=== PATIENT | female | born 1975 | race African-American/Black ===

== ENCOUNTER 2018-09-16 09:43 | Inpatient (IN) | payer MEDICAID ==
[~2018-09-16] VITALS: Ht 162.6 cm; Wt 144.7 kg
[2018-09-16 11:18] LABS: BASOPHILS % 0.6 % (0.0-2.0); EOSINOPHILS % 0.2 % (0.0-5.0); HEMATOCRIT. 37.8 % (36.0-48.0); LYMPHOCYTES % 14.7 % (20.0-50.0); MEAN CORPUSCULAR HEMOGLOBIN 24.4 pg (28.0-32.0); MEAN CORPUSCULAR VOLUME 76.7 fL (81.0-99.0); MEAN PLATELET VOLUME 8.4 fl (7.4-10.4); MONOCYTES % 4.1 % (2.0-8.0); NEUTROPHILS % 80.4 % (40.0-76.0); PLATELET 505 x1000/uL (130-400); RED BLOOD CELL COUNT 4.93 mill/uL (4.2-5.4); RED CELL DISTRIBUTION WIDTH 15.7 % (11.6-14.6)
[2018-09-16 11:22] LABS: CHLORIDE 99 mEq/L (98-107)
[2018-09-16] MEDS ORDERED: SODIUM CHLORIDE 0.9% 1,000 ML IV ONE (12:45)
[2018-09-16] MEDS: LOSARTAN POTASSIUM 100 MG TABLET PO SCH (13:00)
[2018-09-16] MEDS ORDERED: HYDR25TA PO (13:17)
[2018-09-16] MEDS ORDERED: GLIP10TA10 MT (13:17)
[2018-09-16] MEDS ORDERED: ASPI-1158 MT (13:17)
[2018-09-16] MEDS ORDERED: METF-415 PO (13:17)
[2018-09-16] MEDS ORDERED: LOSA100T14 MT (13:17)
[2018-09-16 16:30] VITALS: BP 166/98
[2018-09-16 16:45] VITALS: BP 166/98
[2018-09-16] MEDS ORDERED: HYDROCODONE/ACETAMINOPHEN 5/325MG TABLET PO PRN (18:00)
[2018-09-16] MEDS ORDERED: ACETAMINOPHEN 325MG TABLET PO PRN (18:00)
[2018-09-16] MEDS ORDERED: MORPHINE SULFATE 4 MG/ML CPJ (NOT FOR IM USE) IV PRN (18:00)
[2018-09-16] MEDS ORDERED: DOCUSATE SODIUM 100MG CAPSULE PO PRN (18:00)
[2018-09-16] MEDS ORDERED: GUAIFENESIN 200MG/10ML SUGAR FREE UDC PO PRN (18:00)
[2018-09-16] MEDS ORDERED: CLONIDINE 0.1MG TABLET PO PRN (18:00)
[2018-09-16] MEDS ORDERED: MAGNESIUM/ALUMINUM HYDROXIDE/SIMETHICONE 30ML UDC PO PRN (18:00)
[2018-09-16] MEDS ORDERED: DEXTROSE 50% WATER 50ML SYRINGE IV PRN (18:00)
[2018-09-16 20:00] VITALS: BP 144/96
[2018-09-16] MEDS: ENOXAPARIN 40MG/0.4ML SYR SUBCUT SCH (20:08)
[2018-09-16] MEDS: BLOOD SUGAR DIAGNOSTIC STRIP TEST SCH (20:16)
[2018-09-16] MEDS: INSULIN LISPRO 100 UNITS/ML SUBCUT SCH (20:27)
[2018-09-16] MEDS ORDERED: HYDROCHLOROTHIAZIDE 25MG TABLET PO SCH (21:00)
[2018-09-16 21:46] LABS: CREATINE KINASE 202 IU/L (26-192)
[2018-09-16 21:47] LABS: CREATINE KINASE MB FRACTION < 1.0 ng/mL (0.5-3.6)
[2018-09-17] VITALS (7 sets, daily range): BP systolic 132–153; BP diastolic 76–94
[2018-09-17] MEDS: BLOOD SUGAR DIAGNOSTIC STRIP TEST SCH ×2 (06:20→12:30)
[2018-09-17 06:28] LABS: BASOPHILS % 0.4 % (0.0-2.0); EOSINOPHILS % 1.6 % (0.0-5.0); HEMATOCRIT. 34.9 % (36.0-48.0); HEMOGLOBIN. 11.2 g/dL (12.0-16.0); LYMPHOCYTES % 34.9 % (20.0-50.0); MEAN CORPUSCULAR HEMOGLOBIN 24.6 pg (28.0-32.0); MEAN CORPUSCULAR VOLUME 76.6 fL (81.0-99.0); MONOCYTES % 6.5 % (2.0-8.0); NEUTROPHILS % 56.6 % (40.0-76.0); PLATELET 462 x1000/uL (130-400); RED BLOOD CELL COUNT 4.56 mill/uL (4.2-5.4); RED CELL DISTRIBUTION WIDTH 15.6 % (11.6-14.6)
[2018-09-17 06:54] LABS: CHLORIDE 100 mEq/L (98-107)
[2018-09-17 07:02] LABS: LDL CHOLESTEROL 86 mg/dL (5-100)
[2018-09-17 07:03] LABS: CREATINE KINASE 338 IU/L (26-192)
[2018-09-17 07:04] LABS: HDL CHOLESTEROL 35 mg/dL (40-59)
[2018-09-17 07:06] LABS: CREATINE KINASE MB FRACTION < 1.0 ng/mL (0.5-3.6)
[2018-09-17] MEDS ORDERED: GLIPIZIDE 10MG TABLET PO SCH (07:20)
[2018-09-17] MEDS: LOSARTAN POTASSIUM 100 MG TABLET PO SCH (08:21)
[2018-09-17] MEDS: INSULIN LISPRO 100 UNITS/ML SUBCUT SCH ×2 (08:21→12:31)
[2018-09-17] MEDS: ENOXAPARIN 40MG/0.4ML SYR SUBCUT SCH (08:22)
[2018-09-17] MEDS ORDERED: ASPIRIN 81MG EC TABLET PO SCH (09:00)
[2018-09-17 12:43] LABS: T4 FREE 1.23 ng/dL (0.76-1.46)
[2018-09-17] MEDS ORDERED: IOHEXOL-350 100 ML BOTTLE ONE (14:34)
[2018-09-17 15:29] LABS: HCG SCREEN NEGATIVE
[2018-09-17 15:35] LABS: CREATINE KINASE 433 IU/L (26-192)
[2018-09-17 15:36] LABS: CREATINE KINASE MB FRACTION < 1.0 ng/mL (0.5-3.6)
== END 2018-09-17 15:50 | disposition home or self-care (01) | DRG 48 ==
LOC: ER 09:43 → 6WST 12:55 → EDBEDREQ 13:11 → ENRESERV 15:41
PROVIDERS: ADMIT Hospitalist; ATTEND Hospitalist
DX: G90.8 Other disorders of autonomic nervous system (principal); E66.01 Morbid (severe) obesity due to excess calories; I10 Essential (primary) hypertension; E87.1 Hypo-osmolality and hyponatremia; E11.9 Type 2 diabetes mellitus without complications; R06.02 Shortness of breath; Z82.49 Family history of ischemic heart disease and other diseases of the circulatory system; Z90.49 Acquired absence of other specified parts of digestive tract; Z68.43 Body mass index [BMI] 50.0-59.9, adult; M94.0 Chondrocostal junction syndrome [Tietze]
CPT/HCPCS: 36415; 71045; 71275; 80061; 82550; 82553; 82962; 83036; 83880; 84439; 84443; 84484; 84703; 85379; 93005; 93306; 93970; 96360; 96361; 99285; C1893; J1650; J1815; Q9967